=== PATIENT | male | born 1965 | race Caucasian/White ===

== ENCOUNTER 2022-09-08 21:38 | Emergency (ER) | payer OTHER, SELFPAY ==
[2022-09-08 21:43] VITALS: BP 179/94; PULSE 72; RESP 18; TEMP 37.1; O2SAT 98; BMI 35.2
--- NOTE | 2022-09-08 21:46 | ED_ITS ---
HPI - Allergic Reaction General Chief complaint: Animal Bite Stated complaint: STING - BEE Time Seen by Provider: 09/08/22 21:43 History of Present Illness HPI narrative: patient states he was stung several times on the back of his legs around 4PM. feels his legs are swollen. He feels his throat is feeling tight. No short of breath. voice is not hoarse. No fever or nausea complaint: Reports allergic reaction Onset (ago): hour(s) Related Data Home Medications Medication Instructions Recorded Confirmed cetirizine 10 mg capsule (Allergy 10 mg PO DAILY PRN allergy symptoms 09/08/22 09/08/22 Relief (cetirizine)) lisinopril 10 mg tablet 10 mg PO DAILY 09/08/22 09/08/22 naproxen sodium 220 mg capsule 220 mg PO DAILY 09/08/22 09/08/22 (Aleve) simvastatin 20 mg tablet 20 mg PO BEDTIME 09/08/22 09/08/22 Allergies Allergy/AdvReac Type Severity Reaction Status Date / Time No Known Drug Allergies Allergy Verified 09/08/22 21:43 Review of Systems ROS Status of ROS 10 or more systems reviewed and unremarkable except as noted in history and below [facility] Medical History (Updated 09/08/22 @ 23:42 by Evan Young MD) Exam Constitutional Common normals: no apparent distress, average body habitus, oriented x3, no limitations and healthy appearing [facility] Common normals: normocephalic, head/scalp atraumatic, hearing grossly normal bilaterally and external nose normal Face and sinus: normal facial exam Other: mild edema of his uvula. no stridor or hoarse voice Eye Common normals: PERRL, EOMs intact bilaterally and conjunctivae normal Respiratory Common normals: normal respiratory effort, no retractions, no use of accessory muscles and clear to auscultation bilaterally Cardio Common normals: regular rhythm, S1 normal heart sound and S2 normal heart sound GI Common normals: Normal to inspection, nondistended, normoactive bowel sounds present, soft to palpation and non-tender Extremity Common normals: normal to inspection and no joint enlargement Neuro Common normals: oriented x3, CN's II-XII intact bilaterally, moves all extremities and no focal motor deficits Psych Appearance: grossly normal MDM - Allergic Reaction MDM Narrative Medical decision making narrative: patient presents after allergic reaction to bee sting. Sensation of tightness in his throat. treated with combination of solumedrol, pepcid and benadryl. At the time of discharge his throat was no longer feeling tight and he was feeling better. Discharged with prednisone and benadryl to take later tonight and a prescription for prednisone tomorrow > He is to follow up with his family doctor for a recheck. Also provided a prescription for an epi pen Discharge Plan Discharge Chief Complaint: Animal Bite Clinical Impression: Allergic reaction to bee sting Prescriptions / Home Meds: No Action lisinopril 10 mg tablet 10 mg PO DAILY simvastatin 20 mg tablet 20 mg PO BEDTIME Allergy Relief (cetirizine) 10 mg capsule 10 mg PO DAILY PRN (Reason: allergy symptoms) naproxen sodium [Aleve] 220 mg capsule 220 mg PO DAILY Instructions: Insect Bite or Sting (ED) Additional Instructions: take benadryl and prednisone in the next 4-6 hours. follow up with your doctor next week Stand Alone Forms: Portal Instructions Referrals: Jarod Ayoub MD [Primary Care Provider] - 1 week
[2022-09-08 22:01] VITALS: RESP 18
[2022-09-08] MEDS: METHYLPREDNISOLONE SOD SUCC PF 125 MG/2 ML VIAL IVP (22:07)
[2022-09-08] MEDS: FAMOTIDINE/PF 20 MG/2 ML VIAL IV (22:08)
[2022-09-08] MEDS: DIPHENHYDRAMINE HCL 50 MG/ML (1ML) VIAL IV (22:08)
[2022-09-08 22:44] VITALS: BP 157/74; PULSE 67; RESP 16; O2SAT 99
[2022-09-08] MEDS: ACETAMINOPHEN 500 MG TABLET 1000 MG PO (22:48)
[2022-09-09] MEDS: DIPHENHYDRAMINE HCL 25 MG CAPSULE 50 MG PO (00:10)
[2022-09-09] MEDS: PREDNISONE 20 MG TABLET 40 MG PO (00:10)
[2022-09-09 00:17] VITALS: BP 141/75; PULSE 63; RESP 16; O2SAT 98
== END 2022-09-09 00:19 | disposition home or self-care (01) ==
PROVIDERS: Emergency Provider Internal Medicine; PCP Family Medicine
DX: T63.441A Toxic effect of venom of bees, accidental (unintentional), initial encounter (principal); Z79.899 Other long term (current) drug therapy
CPT/HCPCS: 96374; 96375; 99284; J2930

== ENCOUNTER 2023-05-15 10:23 | Outpatient (OUT) | payer OTHER, SELFPAY ==
[2023-05-15 10:35] LABS: Basophils Percent Auto 0.7 % (0.2-2.0); Eosinophils Absolute Auto 0.4 10^3/uL (0.0-0.7); Eosinophils Percent Auto 8.9 % (0.9-7.0); Hematocrit 44.3 % (42.0-54.0); Hemoglobin 14.8 g/dL (14.0-18.0); Immature Granulocytes Abs Auto 0.02 10^3/uL (0.00-0.03); Immature Granulocytes Pct Auto 0.5 % (0.0-0.5); Lymphocytes Absolute Auto 1.3 10^3/uL (1.2-3.8); Lymphocytes Percent Auto 32.4 % (20.5-60.0); Mean Corpuscular HGB Conc 33.4 g/dL (29.9-35.2); Mean Corpuscular Hemoglobin 29.6 pg (25.9-34.0); Mean Corpuscular Volume 88.6 fL (80.0-94.0); Mean Platelet Volume 8.4 fL (9.5-13.5); Monocytes Absolute Auto 0.6 10^3/uL (0.3-0.8); Monocytes Percent Auto 14.9 % (1.7-12.0); Neutrophils Absolute Auto 1.7 10^3/uL (1.4-6.5); Neutrophils Percent Auto 42.6 % (43.0-75.0); Platelet Count 169 10^3/uL (150-450); Red Cell Distribution Width 12.7 % (11.0-15.0)
[2023-05-15 10:44] LABS: Estimated Average Glucose 120 mg/dL; Glycohemoglobin A1C 5.8 % (4.5-6.2)
[2023-05-15 11:23] LABS: Alanine Aminotransferase 58 U/L (16-63); Albumin Globulin Ratio 1.2; Alkaline Phosphatase 86 U/L (46-116); Anion Gap 11.6; Aspartate Amino Transferase 30 U/L (15-37); BUN Creatinine Ratio 16.3; Bilirubin Total 0.4 mg/dL (0.2-1.0); Calcium 8.9 mg/dL (8.5-10.1); Carbon Dioxide 28.4 mmol/L (21.0-32.0); Chloride 102 mmol/L (98-107); Chol HDL Ratio 4.2; Cholesterol 173 mg/dL (<=200); Estimated GFR (African America >60 (>=60); Estimated GFR (Non-African Ame >60 (>=60); Free T3 2.93 pg/mL (2.18-3.98); Globulin 3.3 g/dL; Glucose 110 mg/dL (74-106); HDL Cholesterol 41 mg/dL (40-60); Sodium 138 mmol/L (136-145); Thyroid Stimulating Hormone 1.842 uIU/mL (0.358-3.740); Total Protein 7.3 g/dL (6.4-8.2); Triglycerides 163 mg/dL (<=150); VLDL CHOLESTEROL 32.6 mg/dL
[2023-05-15 11:25] LABS: Prostate Specific Antigen Scrn 0.94 ng/mL (<=4.00)
[2023-05-16 08:11] LABS: Insulin 22.9 uIU/mL (2.6-24.9)
== END 2023-05-15 10:24 | disposition home or self-care (01) ==
LOC: LAB 10:23
PROVIDERS: PCP Family Medicine; Visit Provider Family Medicine
DX: Z00.00 Encounter for general adult medical examination without abnormal findings (principal); R73.09 Other abnormal glucose; Z12.5 Encounter for screening for malignant neoplasm of prostate
CPT/HCPCS: 36415; 80053; 80061; 83036; 83525; 84436; 84443; 84481; 85025; G0103

== ENCOUNTER 2023-11-02 13:05 | Emergency (ER) | payer OTHER, SELFPAY ==
[2023-11-02] VITALS (11 sets, daily range): BP systolic 128–172; BP diastolic 71–95; PULSE 57–75; TEMP 36.8; O2SAT 95–98; BMI 35.2
--- NOTE | 2023-11-02 13:22 | ECG_ITS ---
[facility] Test Date: 2023-11-02 Pat Name: DIANDRA WOODWARD Department: Room: - Gender: Male Functional Manager: : 1965 Requested By: YEE MANLEY Order Number: [id number] Reading MD: MADISON DAVIS Measurements Intervals [place] Rate: 69 P: 52 OR: 200 QRS: 36 QRSD: 94 T: 30 QT: 412 QTc: 431 Interpretive Statements 1100 Sinus rhythm 9110 normal ECG No previous ECG available for comparison Electronically Signed On 11-03-2023 18:44:06 EDT by MADISON DAVIS
--- NOTE | 2023-11-02 13:24 | ED.ALLEREA1 ---
HPI - Allergic Reaction General Chief complaint: Allergic Reaction Stated complaint: BEE STING/ ALLERGIC REACTION Time Seen by Provider: 11/02/23 13:19 Source: patient Mode of arrival: walk-in Limitations: no limitations History of Present Illness HPI narrative: Patient is a 58-year-old male with a history of bee sting allergy who presents to the emergency department after being stung about 30 minutes ago in the back of the left leg. He used his EpiPen immediately and has not had any focal medical complaints other than feeling shaky since using the EpiPen. He denies any rash, itching, tongue swelling or throat swelling. His states they were concerned because when he was diagnosed with a bee sting allergy, he was stung and did not develop any throat swelling for several hours which prompted the physician to give him an EpiPen. No other medications taken prior to arrival. Related Data Home Medications ?Medication ?Instructions ?Recorded ?Confirmed cetirizine 10 mg capsule (Allergy 10 mg PO DAILY PRN allergy symptoms 09/08/22 09/08/22 Relief (cetirizine)) lisinopril 10 mg tablet 10 mg PO DAILY 09/08/22 09/08/22 naproxen sodium 220 mg capsule 220 mg PO DAILY 09/08/22 09/08/22 (Aleve) simvastatin 20 mg tablet 20 mg PO BEDTIME 09/08/22 09/08/22 Previous Rx's ?Medication ?Instructions ?Recorded epinephrine 0.3 mg/0.3 mL 0.3 mg (0.3 mL) IM ONCE PRN 11/02/23 injection, auto-injector (EpiPen) anaphylaxis #1 ea hydroxyzine HCl 25 mg tablet 25 mg PO Q6H PRN itching #20 tabs 11/02/23 prednisone 20 mg tablet 60 mg (3 x 20 mg) PO DAILY 3 days 11/02/23 #9 tabs Allergies Allergy/AdvReac Type Severity Reaction Status Date / Time bee venom protein (honey bee) Allergy Severe Hives Verified 11/02/23 13:11 Review of Systems ROS Constitutional Denies: fever or chills Eyes Denies: change in vision Ears, nose, mouth, and throat Denies: throat pain, throat swelling or nasal congestion Cardiovascular Denies: chest pain Respiratory Denies: shortness of breath Gastrointestinal Denies: nausea or vomiting Musculoskeletal Denies: back pain or neck pain Integumentary/Breast Denies: rash, itching or redness Neurological Denies: numbness in extremities or weakness in extremities Hematologic/Lymphatic Denies: easy bruising or easy bleeding [facility] Medical History (Updated 11/02/23 @ 14:34 by REJI Muller) High cholesterol ?E78.00 - Pure hypercholesterolemia, unspecified (ICD-10) High blood pressure ?I10 - Essential (primary) hypertension (ICD-10) Exam Narrative Exam Narrative: Gen.: Awake, alert, in no distress Head: Normocephalic, atraumatic ENT: Moist mucous membranes Respiratory: No respiratory distress, lungs clear bilaterally Cardio: Regular rate and rhythm Extremities: Moves extremities equally Psych: Normal mood and affect Neuro: No focal neuro deficit Skin: Warm, dry, intact Constitutional Vital Signs, click to edit/add: Last Vital Signs Temp 98.2 F 11/02/23 13:12 Pulse 64 11/02/23 13:12 Resp 20 11/02/23 13:12 BP 172/95 H 11/02/23 13:12 Pulse Ox 95 11/02/23 13:12 Course Vital Signs Vital signs: Vital Signs Temperature 98.2 F 11/02/23 13:12 Pulse Rate 64 11/02/23 13:12 Respiratory Rate 20 11/02/23 13:12 Blood Pressure 172/95 H 11/02/23 13:12 Pulse Oximetry 95 11/02/23 13:12 Temperature 98.2 F 11/02/23 13:12 Pulse Rate 64 11/02/23 13:12 Respiratory Rate 20 11/02/23 13:12 Blood Pressure 172/95 H 11/02/23 13:12 Pulse Oximetry 95 11/02/23 13:12 MDM - Allergic Reaction MDM Narrative Medical decision making narrative: Patient stated initially when he gave himself the epi injection, he noticed that his pulse felt fast which immediately resolved. He was observed in the emergency department for over 90 minutes, he had no tachycardia, normal EKG monitoring and no complaints of chest pain or shortness of breath. He did not develop any rash, itching, facial swelling. He rested comfortably throughout his stay in the ER and will be discharged home with a refill prescription for an EpiPen, short course of antihistamines and steroids. Follow-up with PCP and return to the ER if symptoms change or worsen. SUPERVISED APC VISIT, PHYSICIAN ATTESTATION: Based on the medical record the care appears appropriate. ? Medical Records Attestation: I reviewed the patient's medical records. ECG Data Attestation: I personally reviewed and interpreted this ECG as follows: (Sinus rhythm at a rate of 69, no acute ST elevation or ectopy. EKG reviewed by attending physician) Discharge Plan Discharge Chief Complaint: Allergic Reaction Clinical Impression: Bee sting Patient Disposition: Home, Self-Care Time of Disposition Decision: 14:33 Condition: Good Prescriptions / Home Meds: New prednisone 20 mg tablet 60 mg PO DAILY 3 Days Qty: 9 0RF hydroxyzine HCl 25 mg tablet 25 mg PO Q6H PRN (Reason: itching) Qty: 20 0RF epinephrine [EpiPen] 0.3 mg/0.3 mL auto-injector 0.3 mg IM ONCE PRN (Reason: anaphylaxis) Qty: 1 0RF Rx Instructions: for 2 doses No Action lisinopril 10 mg tablet 10 mg PO DAILY simvastatin 20 mg tablet 20 mg PO BEDTIME Allergy Relief (cetirizine) 10 mg capsule 10 mg PO DAILY PRN (Reason: allergy symptoms) naproxen sodium [Aleve] 220 mg capsule 220 mg PO DAILY Print Language: [place]er Instructions: Insect Bite or Sting (ED) Referrals: Jarod Ayoub MD [Primary Care Provider] - 1 week
[2023-11-02] MEDS: 0.9 % SODIUM CHLORIDE 1,000 ML 999 ML IV (13:38)
[2023-11-02] MEDS: METHYLPREDNISOLONE SOD SUCC PF 125 MG/2 ML VIAL IVP (13:40)
[2023-11-02] MEDS: FAMOTIDINE/PF 20 MG/2 ML VIAL IV (13:40)
== END 2023-11-02 14:59 | disposition home or self-care (01) ==
PROVIDERS: Emergency Provider Student in an Organized Health Care Education/Training Program; PCP Family Medicine
DX: T63.441A Toxic effect of venom of bees, accidental (unintentional), initial encounter (principal)
CPT/HCPCS: 93005; 96374; 96375; 99284; J2919

== ENCOUNTER 2024-05-28 11:41 | Outpatient (OUT) | payer OTHER, SELFPAY ==
--- OUTSIDE RECORDS SUMMARY | 2024-05-28 12:02 | XMS_ITS | CCD ---
Author Organization [facility] Inform ion Partnership [facility] Care Team Providers Care Otolaryngology Surgeon Name Role Phone DR YEE AYOUB Attending Unavailable DR YEE AYOUB Admitting Unavailable DR YEE AYOUB Primary Care Unavailable DR YEE AYOUB Consulting Unavailable DR YEE AYOUB Admitting Unavailable DR YEE AYOUB Primary Care Unavailable DR YEE AYOUB Consulting Unavailable DR YEE AYOUB Attending Unavailable Yee Ayoub Primary Care Physician Yusra Baldwin Referring Unavailable Yusra Baldwin Attending Unavailable Yusra Baldwin Admitting Unavailable Medications Current Medications Medication Drug Class(es) Dates Sig (Normalized) Sig (Original) Centrum Adults (1 source) Start: 10-07-2020 take 1 tablet by mouth once daily Centrum Adults 1 tab(s), Oral, Daily, Refill(s) 0 Start Date: 10/07/20 Status: Ordered cetirizine hydrochloride 10 mg oral tablet (1 source) Histamine-1 Receptor Antagonist Start: 10-07-2020 take 1 tablet by mouth once daily cetirizine 10 mg Tab 10 mg = 1 tab(s), Oral, Daily, Refills(s) 0 Start Date: 10/07/20 Status: Ordered simvastatin 20 mg oral tablet (1 source) HMG-CoA Reductase Inhibitor Start: 09-29-2020 take 1 mg by mouth once daily at bedtime simvastatin 20 mg Tab mg tab(s), Oral, Once a day (at bedtime), Refills(s) 0 Start Date: 09/29/20 Status: Ordered Problems Active Problems Problem Classification Problem Date Documented Date Episodic/Chronic Disorders of lipid metabolism (1 source) Hypercholesterolemia 09-29-2020 Chronic Other gastrointestinal disorders (1 source) Hyperplastic polyp of intestine 11-11-2020 Episodic Other nutritional; endocrine; and metabolic disorders (1 source) Body mass index 30+ - obesity 10-07-2020 Chronic Other screening for suspected conditions (not mental disorders or infectious disease) (1 source) Encounter for screening for malignant neoplasm of prostate; Translations: [ENC SCREEN MALIG NEOPLASM PROSTATE] Onset: 12-23-19 22 Episodic Residual codes; unclassified (1 source) Obstructive sleep apnea syndrome; Translations: [Obstructive sleep apnea (adult) (pediatric)] Onset: 04-08-19 23 Chronic Residual codes; unclassified (1 source) Sleep apnea 09-29-2020 Chronic Spondylosis; intervertebral disc disorders; other back problems (2 sources) Cervical disc disorder; Translations: [Disorder of lumbar disc] 09-29-2020 Chronic Unclassified (3 sources) CONTACT W/AND (SUSP) EXPOS COVID-19; Translations: [CONTACT W/AND (SUSP) EXPOS COVID-19] Onset: 03-11-19 Unclassified (1 source) Patient encounter status 10-07-2020 Past or Other Problems Problem Classification Problem Date Documented Da te Episodic/Chronic Conditions associated with dizziness or vertigo (1 source) Dizziness and giddiness; Translations: [DIZZINESS AND GIDDINESS] Onset: 03-11-2021 Episodic Unclassified (1 source) CONTACT W/AND (SUSP) EXPOS COVID-19; Translations: [CONTACT W/AND (SUSP) EXPOS COVID-19] Onset: 03-09-2021 Results Test Name Value Interpretation Reference Range Facil ity Coding Summary.on 04-13-2022 Coding Summary. [id number] Gh0bWw+PGhlYWQ+PE1FV UKuZ17wdXCcyK4NU7fHO G6RKWLHUOVTID1GTR8ne DP8NNxnB1LtllJa PoidxLNcZL81DRo1VIJ1 eChvVVylyL9eoCGgC7y2 ZsCcUP06dA12SAnuXOIm StK7IoTcoajfaVUo T3eiAiKgxVPwPot+PHRh YmxlIHdpZHRoPScxMDAl ZyXylSzuLK0kJv1xXPPg LWNvbGxhcHNlOiBj o4vlGTByUPxkHJ0lqHlq P7FpcPT7GMGdp5i3Dk22 dHI+UOEjQIX7uBvwMZcb e293IjJjp1zuIHQ4 gJAbNKfxDUR2T06nf2O8 EWExZDMaCCY1sLV7cT0l iRlgfrwfN0AakGOfCyE4 YZM7wGTaiD3usMpu lfawoY7tKlo+T47GUH6U VPSXFV3OUrr3R0RoLeit dHI+EY39JZRlOK88nLNl lGCqa4zczZo6KyDw DWGvQHT8lTsfVRidr8Ie IAGeG75bmZMle3W6LORx xZxzkXMxAyQceFR1lI8j RBamqiqvg1eqlium Iseer2ffsn05lK42D13h DXcsHTUfMCR5ZBUfYHKi sKtomf9saO9eXu6+IDxj x1bha8ckrIw4QiUs BQLytpVdlFwqWPA4c2Nz Kt85M8VhgYyui9ChPtw7 xe86cMGrq1F2oRI0SAwj HCUhoE5iJGqtCqI7 OEDlPvBobE62nEZcJWzm Ph8jgCkmeTarBK6hGHFn txhaHJYzfM4tHBPlyDFb kUgqSG4jGOYwwsdi k484DmGmOOF4HBRkaEYa Y5AtqS8qDwMgLVSuJOEo X2OigMNvLKekC479IVkc FsD7YWUpiqKiX4Qi QINmyEfoKqV8u4G9Eh0M l3BghrxwGWE2NKmoEILm JyR1ViEuOgP3H8BwVhg4 CSJwuDukIX7xM8Ni QVHqypqwatvyzVT9XYHt UPLnrI68lMQoFYxcTj8h u7E8t893LKFtXDXxhZ19 Fs9ocQylNRWmlQIE aT4gyrblm3fpgeahCtGp MOVhDCy0YMd1XQTfkQwn SfWgTOQ7IhH9CHL9cGXh kO8egWxdakwmgQ0b Oyc+X02tdZ8aMIC7RKI3 pwadELVpfkCcRF03XV54 G5OlDutvfMBjlXQ+PGRp luLdhCafGL7sVpXd x9jta5BtHLkmX7DsGWUs ZEkiQfn7ERTuJIH9mOV4 wE9sUJUaYGvtk0C9sHM2 O6SenxLwtx0po9bx LBMsFElkI16ljJLrv5B5 YPGmtHZ0IIKyuNvvDgMh nN82Wmd+HITibMewm3Rf Gogrc1bts7exiRt0 IjMwJSIgdmFsaWduPSJ0 z6WsOg72J44fKDelSQOx WQNcSVIgGBPtlLjroy2k yG7tCh3+PGNvbCB3 qJF1lW4iYJSpGyR6CWcl R172AvRyqKAnVgzpm7fq z6ycnYc6HrJtZWMybzJs nPeuGYG4a4VaPh55 T36jFRzcUJUkHSVrFAXm SXAgaRkzbz8ylX8gKh8+ DA7bm0tguq99qU62uJP+ OWGuISJ9mHlhMTde AUOdgV2sPRyrReO1CKHh IiUdsD18kYRdSVznFx4t aEdzpCvkIJ9sIMFkpoiy t369VuNba4rlNBYr nMOdRZctJTB7K21ju4S8 TDHrCNQjTFB7gWR7jG7h bGlnbjogbGVmdDsgdmVy jJkoZCdbXJgtR973 IHRvcDsnPlBhdGllbnQg RuLqUBr0N3YqIrl7WIIj oUpnIN4adHDrEGalRp3m uNlutXtzHZ3fTIXh wnuyd966KnBwo0yrLVMn rPSrHSdtKBJ1O01ii4H6 YFRnDZTsWWZ9iVQ3aA2j bGlnbjogbGVmdDsg tlQcuWckFAjhWOcgY647 IHRvcDsnPkJpcnRoIERh oME1LR45MI79mSFjw8V9 mUD2A1PhQCRpibak bdyvkHY6FDZsQVDvtL36 Nq6hqPayFt0rJHPdISY7 PTSvtIIaV7DiuF0dLuFc XIKaIMAbF7GcbBXp SQdtW588QIzjLhV9IREi ouAaF6RyFEErfRsmLdK0 m9B3Jf6MZ9F2RZ64GF01 pKUbp8V9cMI1O5Ka PMCutjovpoicoER7URAx ZHPhmH70Nd1esWymVl1k FCRlBIL3JJHltNIdR6Vk qT0aEhSeESLrVJZb V3AorNMjSJhoQ859SUhg EwU7COHtinQnU1JcMAOk gSfjEcU9v6N9Ga6APFv7 NA32CB14aVFkb8E9 aIZ9Q2LvEIQcarwllikr kZR4EZRcLBSypE47Fm7y xWpgGw0wRDIaQQZ0MNHr hPPeA6IbvT2dCpSh QFCaDKVnQ3AdrWQpQPfm B867BFfmBeR5UVJlmpAf L2JbKWBtoEebGlF1u1J5 Jl1CQWTcOF01KMH6 eSE9PU51PR97Q0QuKuuk dGFibGU+PHRhYmxlIHdp ZHRoPScxMDAlJyBzdHls DA3sEl2eGKBvJTJp sLxvgHReIdXtq4cqODIv ANvzMV2qqNarK8QktHN1 CRXcw2v9Mr86L06aN6Gu dXA+OVBxoZF5iIX2 mI1qRfHzYbO0MKbjH801 JyIuxYGaIvano6dcr6cw nEb7UaJ3UALkvpGbpWrg IEG1l8IoCf61Y26z IHdpZHRoPSIxNSUiIHZh hGwise6qyY7lIz3+PGNv bUL0oHG5nN8bZbMlJdR1 TTfwL753UlTkzRGh Rbxmg4xyd3spkJn8InLx PYRhxzSdlIryYSF2l2Wx Gt91U8ZtnGemv5FfWjn6 xv33sGWgz2Q1zTJ3 Z8TpANUhhytxnHYykCnu KQ9jCDQvcdvkESCffY6r AYVjE5a4ErNcXiJ7BMro C3RtelE0RQAqqWOx RRsaZPJ8M91qw5Z6PCJs QQOcOLQ3wAT8hH9xhRlq bjogbGVmdDsgdmVydGlj VSyjPJgjN844RYBx iVjfZBRhqW6kQMOqqNKb yLyxOW7uONNovrsyJwhN QHUIJRSEXgkqCQ2TRK7O DPZWOW63BP32cFVu h4E2mAE4S8BpCQLxmcxu ozgufFT1VTGjMSMgeI27 cOLyGJvdVv8yz0F4w609 PTXiXYLkcW53Ig6p xAxxALAhsCUWmK3oxkhs y3vuuykpSnIeLIYfBLt3 UGk0QRWtfQdgWaMkXPX2 NaG1CEP4gOQnyU8m yCjhzgbfpT6fDyd+MDYv FKHuDGo5YdqreUP+PHRk GQT4rSipKLouZTAynO8a YRVaE0q1NlKdHzJ4 DSrcQ6RfPPZmxkhkHi67 bZ7xLgLnZbX3YTlsC2Fi xpO0UYRfjQMrYOyaMCA5 G78jy9D8NHLbFKLj QPX7bTV6gP6spKdxqans bGVmdDsgdmVydGljYWwt SHbfR555PWEvrQczFfY5 CYmcKJOeFC66BI73 oFYko6U7bTC7W5JgNSFk fisnjrpnuIN5EKDeVSWv sY31vBTmHJpfRn1hh0C1 b654UKCsCRQmpB69 Fk3grDntKHBwnLVAoH2n spjel2zbqbquXbRlVDBj VLx6OQh2OOEkiGqkDsQf LXD3YkY4NHO2lSHs pP1gdDurscezuA8aHdr+ TWFsZTwvdGQ+PHRkIHN0 eVrnUSeeKTBqmU9uKQFg A2x9DzJaVxS5BFug B2HdFLXbrcqfNp68sJ9t RqXbJoK7WPiuW3DnczQ7 SJLmfRZyFKveKFK4Z09i s9X0YNPvPMUcZEW7 jPD7eJ4uaAjoizrtyBFh dDsgdmVydGljYWwtYWxp W386FIIldFvoXl92dGPa iCulcnN4F2PeVcjv dHI+HC93EZPpVG84dLKo pROyy8zrhFx3XxQyOTYr TJK3eYleCZkla1KuDBOf D15fjFZlt4Z0OKMz lKcufOJlSrKqxUL4rU9f FVuddyjyf0ayjzsoEzwn o7uxoo56sA96J91sIUkq ZHRoPSIzMCUiIHZh kGrbcp8tfK4hSz5+PGNv aKA0qOF1iT1oNfBpZxM4 ATsaC979UdQhhEVkZpma s1zer3jioUc8LgAu FHTwrvXplUarEIX9n6Na Pf43H66dXNrcTMBeWYZh COGdHPDhoEwglh0mxA8e Ii8+SI7xh5feez76 gJ13uKG+TSOlYIW9vHls UVitKBFcuZ4gOOqeUdJ6 IRBsQbCahA99jSFxULsq Qu1pcFqudMylKH3q VXYlcrvhs956ZvUwl1on LOFxfVUrYNeyVWG3Q76m t5E7PNQwWZRbVJC7aPK7 yA7xfKyvfbprcVKn dDsgdmVydGljYWwtYWxp Y374FDSvzCteOeCdgERc S8qbnuVKCG6bMwietEZ+ FZGkKOD3lQgpKGhe CZQjoA7uAGMuN6y3JdYm ZoT0LRdvC5IvidY5NDWg uCVtQPOssQHSkI2obuoa k7tvfvoxPsWrLMCn DQg9NIl6QCQolLefGdCw DFH6LeQ0OUZ7nOItcW4f lCligmtotA7jQex+RklO OjwvdGQ+PHRkIHN0 tLugOKmaEGVjrM6uDQPz F0w7ToDfVwJ6PFmzA3Jk hcW2MOPiaMUhNCNwcPPH cE6zdlkxt0jvyggs QcBgMGTnHEo5VDe0DECu cZfjIvMtGBM5EtN6RJZ2 iFWsbD3nbUstyixkkI4a Oyc+TVJOOjwvdGQ+ JVDxCHF8vOnsJZmqMOZz bJ2kQJFyN8n6AcVpQaJ9 MRlyU5HzvxI5WALyaFSq FZKzdTQVwW4hjtsy i0zxvfizPxGsJHFdRJw0 BKs1TBDggTouBrBkLIU9 CgU9RGH0uUFtdZ8wjOtc vuwgqA5cOlu+UGF5 SHG7TO88JX92D1TzEcxp dGFibGU+PHRhYmxlIHdp ZHRoPScxMDAlJyBzdHls DT1gHw1jPAMcINFn bGxh (more content not included)... Normal [facility] Patient History Officeon Patient History Office [id number]#1.00CD:127 Normal [facility] Prescriptions/Work Noteson 0 04-12-2022 Prescriptions/Work Notes [id number] 8#1.00CD:127 Normal [facility] Consent for Treatmenton 02- Consent for Treatment [id number] #1.00CD:127 Normal [facility] Sleep Office/Clinic Noteon 0 04-08-2022 Sleep Office/Clinic Note History of Present Illness Here to establish care for underlying obstructive sleep apnea. The patient was having problems with fatigue and daytime sleepiness and his reported snoring and witnessed apnea. He also underwent a colonoscopy and had several prolonged episodes of apnea and desaturation hence advise a sleep study. He underwent a sleep study which revealed underlying severe obstructive sleep apnea. We have arranged for an auto titrating CPAP machine with a pressure range of 5 to 20 cm with plans to see him back afterwards. He reports he has been using his machine via a nasal mask and has been tolerating relatively well. He reports that his sleep quality and daytime sleepiness has significantly improved and his no longer complains about his snoring. Review of Systems Constitutional: no fever, no chills, no sweats, no weakness Skin: no Jaundice, no rash, no lesions, no petechiae ENT: no ear pain, no sore throat, no congestion, no hoarseness Respiratory: Denies shortness of breath, cough or wheezing Cardiovascular: no chest pain, no palpitations, no edema Gastrointestinal: no nausea, no vomiting, no diarrhea, no GI bleeding Genitourinary: no dysuria, no hematuria, no discharge, no pain Musculoskeletal: no back pain, no trauma Neurologic: no headache, no dizziness, no numbness, no weakness Psychiatric: no irritability, no mood swings/depression. Heme/Lymph: no bleeding tendency, no bruising tendency, no petechiae, no swollen nodes Allergy/Immunologic: no seasonal allergies, no food allergies, no recurrent infections, no impaired immunity Additional ROS info: Except as noted in the above Review of Systems and in the History of Present Illness all other systems have been reviewed and are negative or noncontributory. Physical Exam General: Awake, alert, in no acute distress Skin: warm, dry Head: no trauma, normocephalic. Prolonged soft palate Neck: Trachea midline, no adenopathy, no tenderness Eye: normal conjunctiva, sclera clear ENMT: TM's clear, oral mucosa moist, no pharyngeal erythema or exudate Cardiovascular: regular rate and rhythm, normal peripheral perfusion Respiratory: Good breath sounds to both lung branch without wheezing or crackles. Gastrointestinal: soft, non distended, no tenderness, no guarding. Back: No tenderness, Normal ROM, Normal alignment. Extremities: no deformity, no trauma Neurological: oriented x 4, LOC appropriate for age, CN II-XII intact, motor strength equal & normal bilaterally, sensation equal & normal bilaterally, speech normal Psychiatric: cooperative, affect appropriate for age, normal judgement, normal psychiatric thoughts. Assessment/Plan 1. ROCHELLE (obstructive sleep apnea) (G47.33: Obstructive sleep apnea (adult) (pediatric)) The patient's sleep study was reviewed and results were discussed with the patient in details. Evidence of severe underlying obstructive sleep apnea with an apnea hypotony index of 59/hour with moderate oxygen desaturation noted. The etiology of obstructive sleep apnea and methods of treatment were discussed with the patient in details. Appears to be doing well on current pressures without significant side effects with good tolerance and compliance with CPAP with a significant improvement in the apnea hypopnea index to 0.8/hour with minimal leakage based on his most recent download which is reviewed from October 06, 2022 till April 06, 2022. The patient was advised to clean the machine regularly and change supplies as needed. Avoid driving while sleepy and avoid sedatives and hypnotics such as alcohol. We will continue with same pressure unless new issues develop and see the patient back after 1 year. The patient will call us back in the meantime if any issues. Follow-up With When Contact Information Denny FISH, Yusra Tipton, PUL, KEERTHI Within 1 year [address] [facility] [place] [address]- Additional Instructions: Problem List/Past Medical History Ongoing BMI 34.0-34.9,adult Cervical disc disease Hypercholesterolemia Hyperplastic polyp of sigmoid colon Lumbar disc disease Screening for malignant neoplasm of colon Sleep apnea Historical No qualifying data Procedure/Surgical History Screening colonoscopy (10/21/2020), Tonsillectomy and adenoidectomy. Medications Centrum Adults, 1 tab(s), Oral, Daily cetirizine 10 mg Tab, 10 mg= 1 tab(s), Oral, Daily simvastatin 20 mg Tab, Oral, Once a day (at bedtime) Allergies No Known Allergies Social History Alcohol - Denies Alcohol Use, 09/29/2020 Tobacco - Denies Tobacco Use, 09/29/2020 Never (less than 100 in lifetime) Tobacco Use:. Never Smokeless Tobacco Use:., 10/07/2020 Family History Metastatic cancer: Father. Primary malignant neoplasm of female breast: Mother. Primary malignant neoplasm of prostate: Brother. Normal [facility] Comment on above: Result Comment: Elec tronically Signed By: Denny FISH, Yusra Tipton\.br\Date and Time Signed: 04/08/22 11:17 EST INSULINon 12-18-2021 Insulin 20.5 uIU/mL Normal 2.6-24.9 [facility] Comment on above: Performed By: #### I NSULIN #### [facility] [address] [place] [address] Dr. Kristian Valderrama CBC AUTO DIFFon 12-17-2021 BASO # 0.0 103/ul Normal 0.0-0.1 [facility] Comment on above: Performed By: #### C BC #### [facility] [address] [place] [address] Dr. Kristian Valderrama Basophils/100 WBC (Bld) 0.6 % Normal 0.2-2.0 [facility] Comment on above: Performed By: #### C BC #### [facility] [address] [place] [address] Dr. Kristian Valderrama EO # 0.4 103/ul Normal 0.0-0.7 [facility] Comment on above: Performed By: #### C BC #### [facility] [address] [place] [address] Dr. Kristian Valderrama Eosinophils/100 WBC (Bld) 8.0 % Critically high 0.9-7.0 [facility] Comment on above: Performed By: #### C BC #### [facility] [address] [place] [address] Dr. Kristian Valderrama Erythrocyte distribution width (RBC) [Ratio] 12.8 % Normal 11.0-15.0 [facility] Comment on above: Performed By: #### C BC #### [facility] [address] [place] [address] Dr. Kristian Valderrama Hematocrit (Bld) [Volume fraction] 42.9 % Normal 42.0-54.0 [facility] Comment on above: Performed By: #### C BC #### [facility] [address] [place] [address] Dr. Kristian Valderrama Hemoglobin (Bld) [Mass/Vol] 14.5 g/dL Normal 14.0-18.0 [facility] Comment on above: Performed By: #### C BC #### [facility] [address] [place] [address] Dr. Kristian Valderrama IG # 0.03 10e3/ul Normal 0.00-0.03 [facility] Comment on above: Performed By: #### C BC #### [facility] [address] [place] [address] Dr. Kristian Valderrama IG % 0.6 % Critically high 0.0-0.5 [facility] Comment on above: Performed By: #### C BC #### [facility] [address] [place] [address] Dr. Kristian Valderrama LYMPH # 1.3 103/ul Normal 1.2-3.8 [facility] Comment on above: Performed By: #### C BC #### [facility] [address] [place] [address] Dr. Kristian Valderrama Lymphocytes/100 WBC (Bld) 28.1 % Normal 20.5-60.0 [facility] Comment on above: Performed By: #### C BC #### [facility] [address] [place] [address] Dr. Kristian Valderrama MANUAL DIFF REQ NO Normal [facility] Comment on above: Performed By: #### C BC #### [facility] [address] [place] [address] Dr. Kristian Valderrama MCH (RBC) [Entitic mass] 30.1 pg Normal 25.9-34.0 [facility] Comment on above: Performed By: #### C BC #### [facility] [address] [place] [address] Dr. Kristian Valderrama MCHC (RBC) [Mass/Vol] 33.8 g/dL Normal 29.9-35.2 [facility] Comment on above: Performed By: #### C BC #### [facility] [address] [place] [address] Dr. Kristian Valderrama MCV (RBC) [Entitic vol] 89.0 fL Normal 80.0-94.0 [facility] Comment on above: Performed By: #### C BC #### [facility] [address] [place] [address] Dr. Kristian Valderrama MONO # 0.5 103/ul Normal 0.3-0.8 [facility] Comment on above: Performed By: #### C BC #### [facility] [address] [place] [address] Dr. Kristian Valderrama Monocytes/100 WBC (Bld) 11.5 % Normal 1.7-12.0 [facility] Comment on above: Performed By: #### C BC #### [facility] [address] [place] [address] Dr. Kristian Valderrama NEUT # 2.4 103/ul Normal 1.4-6.5 [facility] Comment on above: Performed By: #### C BC #### [facility] [address] [place] [address] Dr. Kristian Valderrama Neutrophils/100 WBC (Bld) 51.2 % Normal 43.0-75.0 [facility] Comment on above: Performed By: #### C BC #### [facility] [address] [place] [address] Dr. Kristian Valderrama Platelet mean volume (Bld) [Entitic vol] 8.7 fL Critically low 9.5-13.5 [facility] Comment on above: Performed By: #### C BC #### [facility] [address] [place] [address] Dr. Kristian Valderrama PLT 184 103/ul Normal 150-450 [facility] Comment on above: Performed By: #### C BC #### [facility] [address] [place] [address] Dr. Kristian Valderrama RBC 4.82 106/ul Normal 4.70-6.10 [facility] Comment on above: Performed By: #### C BC #### [facility] [address] [address] [address] Kristian Valderrama WBC 4.6 103/ul Normal 4.0-11.0 [facility] Comment on above: Performed By: #### C BC #### [facility] [address] [place] [address] Dr. Kristian Valderrama GLYCOHEMOGLOBIN A1Con 2021 ADA RECOMMENDATION SEE BELOW Normal [facility] Comment on above: Result Comment: ADA RECOMMENDED LIMIT 4.0 - 6.0 ADA THERAPEUTIC TARGET < 7.0 ACTION SUGGESTED > 7.0 Performed By: #### A 1C #### [facility] [address] [place] [address] Dr. Kristian Valderrama Glucose [Mass/Vol] 123 mg/dL Normal [facility] Comment on above: Performed By: #### A 1C #### [facility] [address] [place] [address] Dr. Kristian Valderrama HbA1c (Bld) [Mass fraction] 5.9 % Normal 4.5-6.2 [facility] Comment on above: Performed By: #### A 1C #### [facility] [address] [place] [address] Dr. Kristian Valderrama LIPID PROFILEon 12-17-2021 CHOL-HDL RATIO NORM SEE BELOW Normal [facility] Comment on above: Result Comment: 3.3 - 4.4 LOW RISK 4.4 - 7.1 AVERAGE RISK 7.1 - 11.0 MODERATE RISK >11.0 HIGH RISK Performed By: #### C MP, LIPID #### [facility] [address] [place] [address] Dr. Kristian Valderrama Cholesterol [Mass/Vol] 193 mg/dL Normal <=200 [facility] Comment on above: Performed By: #### C MP, LIPID #### [facility] [address] [place] [address] Dr. Kristian Valderrama Cholesterol in HDL [Mass/Vol] 50 mg/dL Normal 40-60 [facility] Comment on above: Performed By: #### C MP, LIPID #### [facility] [address] [address] [address] Kristian Valderrama Cholesterol in LDL [Mass/Vol] 118.8 mg/dL Normal [facility] Comment on above: Performed By: #### C MP, LIPID #### [facility] [address] [address] [address] Kristian Valderrama Cholesterol.total/Cho lesterol in HDL [Mass ratio] 3.9 {ratio} Normal [facility] Comment on above: Performed By: #### C MP, LIPID #### [facility] [address] [address] [address] Kristian Valderrama HDL NORMAL > or = 60 mg/dl - LOW CARDIOVASCULAR RISK <40 mg/dl - HIGH CARDIOVASCULAR RISK Normal [facility] Comment on above: Performed By: #### C MP, LIPID #### [facility] [address] [place] [address] Dr. Kristian Valderrama LDL CALC NORMAL SEE BELOW Normal [facility] Comment on above: Result Comment: <100 mg/dl OPTIMAL 100 - 129 mg/dl NEAR OR ABOVE OPTIMAL 130 - 159 mg/dl BORDERLINE HIGH 160 - 189 mg/dl HIGH >190 mg/dl VERY HIGH Performed By: #### C MP, LIPID #### [facility] [address] [address] [address] Kristian Valderrama Triglyceride [Mass/Vol] 121 mg/dL Normal <=150 [facility] Comment on above: Performed By: #### C MP, LIPID #### [facility] [address] [address] [address] Kristian Valderrama VLDL CALC 24.2 mg/dL Normal [facility] Comment on above: Performed By: #### C MP, LIPID #### [facility] [address] [address] [address] Kristian Valderrama PROF 14(COMP METB)on 022 Albumin [Mass/Vol] 4.0 g/dL Normal 3.4-5.0 [facility] Comment on above: Performed By: #### C MP, LIPID #### [facility] [address] [address] [address] Kristian Valderrama Albumin/Globulin [Mass ratio] 1.2 {ratio} Normal [facility] Comment on above: Performed By: #### C MP, LIPID #### [facility] [address] [place] [address] Dr. Kristian Valderrama ALP [Catalytic activity/Vol] 78 U/L Normal 46-116 [facility] Comment on above: Performed By: #### C MP, LIPID #### [facility] [address] [place] [address] Dr. Kristian Valderrama ALT [Catalytic activity/Vol] 43 U/L Normal 16-63 [facility] Comment on above: Performed By: #### C MP, LIPID #### [facility] [address] [place] [address] Dr. Kristian Valderrama Anion gap [Moles/Vol] 11.5 mmol/L Normal [facility] Comment on above: Performed By: #### C MP, LIPID #### [facility] [address] [place] [address] Dr. Kristian Valderrama AST [Catalytic activity/Vol] 34 U/L Normal 15-37 [facility] Comment on above: Performed By: #### C MP, LIPID #### [facility] [address] [place] [address] Dr. Kristian Valderrama Bilirubin [Mass/Vol] 0.4 mg/dL Normal 0.2-1.0 [facility] Comment on above: Performed By: #### C MP, LIPID #### [facility] [address] [place] [address] Dr. Kristian Valderrama Calcium [Mass/Vol] 8.7 mg/dL Normal 8.5-10.1 [facility] [facility] Comment on above: Performed By: #### C MP, LIPID #### [facility] [address] [place] [address] Dr. Kristian Valderrama Chloride [Moles/Vol] 104 mmol/L Normal 98-107 [facility] Comment on above: Performed By: #### C MP, LIPID #### [facility] [address] [place] [address] Dr. Kristian Valderrama CO2 [Moles/Vol] 28.6 mmol/L Normal 21.0-32.0 [facility] Comment on above: Performed By: #### C MP, LIPID #### [facility] [address] [place] [address] Dr. Kristian Valderrama Creatinine [Mass/Vol] 0.80 mg/dL Normal 0.70-1.30 [facility] Comment on above: Performed By: #### C MP, LIPID #### [facility] [address] [address] [address] Kristian Valderrama EGFR-AF SURINAMESE >60 Normal >=60 [facility] Comment on above: Performed By: #### C MP, LIPID #### [facility] [address] [place] [address] Dr. Kristian Valderrama EGFR-NON AF SURINAMESE >60 Normal >=60 [facility] Comment on above: Performed By: #### C MP, LIPID #### [facility] [address] [place] [address] Dr. Kristian Valderrama Globulin (S) [Mass/Vol] 3.4 g/dL Normal [facility] Comment on above: Performed By: #### C MP, LIPID #### [facility] [address] [place] [address] Dr. Kristian Valderrama Glucose [Mass/Vol] 114 mg/dL Critically high 74-106 [facility] Comment on above: Performed By: #### C MP, LIPID #### [facility] [address] [place] [address] Dr. Kristian Valderrama Potassium [Moles/Vol] 4.1 mmol/L Normal 3.5-5.1 [facility] Comment on above: Performed By: #### C MP, LIPID #### [facility] [address] [place] [address] Dr. Kristian Valderrama Protein [Mass/Vol] 7.4 g/dL Normal 6.4-8.2 [facility] Comment on above: Performed By: #### C MP, LIPID #### [facility] [address] [place] [address] Dr. Kristian Valderrama Sodium [Moles/Vol] 140 mmol/L Normal 136-145 [facility] Comment on above: Performed By: #### C MP, LIPID #### [facility] [address] [address] [address] Kristian Valderrama Urea nitrogen [Mass/Vol] 15.0 mg/dL Normal 7.0-18.0 [facility] Comment on above: Performed By: #### C MP, LIPID #### [facility] [address] [address] [address] Kristian Valderrama Urea nitrogen/Creatinine [Mass ratio] 18.8 mg/mg Normal [facility] Comment on above: Performed By: #### C MP, LIPID #### [facility] [address] [place] [address] Dr. Kristian Valderrama Covid-19 PCR (CVDTB)on 02-27 SARS-CoV-2 (COVID-19) RNA TIM+probe Ql (Unsp spec) Not detected Normal NOT DETECTED [facility] Comment on above: Result Comment: This test is not yet approved or cleared by the [place] FDA. When there are no FDA-approved or cleared tests available, and other criteria are met, FDA can make tests available under an emergency access mechanism called an Emergency Use Authorization (EUA). The EUA for this test is supported by the [employer] of Health and Human Service's (HHS's) declaration that circumstances exist to justify the emergency use of in vitro diagnostics for the detection and/or diagnosis of the virus that causes COVID-19. This EUA will remain in effect (meaning this test can be used) for the duration of the COVID-19 declaration justifying emergency of IVDs, unless it is terminated or revoked by FDA (after which the test may no longer be used). When diagnostic testing is negative, the possibility of a false negative should be considered in the context of a patient's recent exposures and the presence of clinical signs and symptoms consistent with SARS-CoV-2. Performed By: #### C VDTBH #### [facility] [address] [place] [address] Dr. Kristian Valderrama Encounters Encounter Date Encounter Type Care Provider Facility Start: 04-08-2022 End: 04-09-2022 ambulatory Yusra Baldwin Facility:[facility] Start: 04-08-2022 End: 04-08-2022 Patient encounter procedure Yusra Baldwin [facility] Start: 12-22-2021 Encounter for genera l adult medical examination without abnormal findings DR YEE AYOUB [facility] Start: 12-17-2021 End: 12-18-[address] YEE AYOUB Facility:[facility] Start: 12-17-2021 End: 12-18-2021 Encounter for general adult medical examination without abnormal findings DR YEE AYOUB Facility:[facility] Start: 03-09-2021 End: 03-09-[address] YEE AYOUB Facility:[facility] Procedures Date Procedure Procedure Detail Performing Clinician Start: 12-17-[address] MARIE AYOUB Comment on above: Performed By: #### P [facility] #### [facility] [address] [place] [address] Dr. Kristian Valderrama Start: 10-21-2020 Screening colonoscopy B sabine Baldwin Comment on above: with polypectomy Tonsillectomy and adenoidectomy Yusra Baldwin Payers Date Payer Category Payer Private Health Insurance [id number] 1965 Unknown [id number] 1965 Unknown [id number] 1965 Unknown [id number] 1959 Unknown [id number] Social History Date Type Detail Facility Start: 10-07-2020 Tobacco smoking status Never s moked tobacco (finding) [facility] Tobacco smoking status Never [facility] Sex Assigned At Male [facility] Hospital Discharge instructions 04-01-2022 Note Date & Type Note Facility 04-01-2022 Hospital Discharg e instructions Follow Up Care 04/01/2022 11:42:28 With:Denny FISH, Yusra Tipton, GEOVANNA, KEERTHI Address: [address] [place] [address] [place] [address]- When:1 year [facility] Evaluation + Plan note Note Date & Type Note Facility Evaluation + Plan note No data available for this section [facility] Progress note Note Date & Type Note Facility Progress note No data available for this section [facility] Summary Purpose Family History No Family History Records FoundNo Family History Records Found Advance Directives No Advanced Directives Records FoundNo Advanced Directives Records Found Additional Source Comments (unrecognized sect ion and content) No Status Records FoundNo Status Records Found INFORMATION SOURCE (unrecogn ized section and content) DATE CREATED AUTHOR 12/23/2021 [facility] DATE CREATED AUTHOR AUTHOR'S ORGANIZ ATION 04/13/2022 [facility] Patient Care team informatio n (unrecognized section and content) Personnel Name: Yee Ayoub MD Address: Address: [address] [place] [address] FOR RECORDS PERTAINING TO PATIENTS WHO ARE OR HAVE BEEN ENROLLED IN A CHEMICAL DEPENDENCY/SUBSTANCEABUSE PROGRAM, SOME INFORMATION MAY BE OMITTED. This clinical summary was aggregated from multiple sources. Caution should be exercised in using it in the provision of clinical care. This summary normalizes information from multiple sources, and as a consequence, information in this document may materially change the coding, format and clinical context of patient data. In addition, data may be omitted in some cases. CLINICAL DECISIONS SHOULD BE BASED ON THE PRIMARY CLINICAL RECORDS. [facility]. provides no warranty or guarantee of the accuracy or completeness of information in this document.
[2024-05-28 12:15] LABS: Estimated Average Glucose 117 mg/dL; Glycohemoglobin A1C 5.7 % (4.5-6.2)
[2024-05-28 12:21] LABS: Basophils Absolute Auto 0.1 10^3/uL (0.0-0.1); Basophils Percent Auto 1.1 % (0.2-2.0); Eosinophils Absolute Auto 0.4 10^3/uL (0.0-0.7); Eosinophils Percent Auto 8.2 % (0.9-7.0); Hematocrit 42.8 % (42.0-54.0); Immature Granulocytes Abs Auto 0.01 10^3/uL (0.00-0.03); Immature Granulocytes Pct Auto 0.2 % (0.0-0.5); Lymphocytes Absolute Auto 1.4 10^3/uL (1.2-3.8); Lymphocytes Percent Auto 31.1 % (20.5-60.0); Mean Corpuscular Hemoglobin 30.5 pg (25.9-34.0); Mean Platelet Volume 8.8 fL (9.5-13.5); Monocytes Absolute Auto 0.7 10^3/uL (0.3-0.8); Neutrophils Absolute Auto 2.1 10^3/uL (1.4-6.5); Neutrophils Percent Auto 45.4 % (43.0-75.0); Platelet Count 178 10^3/uL (150-450); Red Blood Count 4.92 10^6/uL (4.70-6.10); Red Cell Distribution Width 12.9 % (11.0-15.0); White Blood Count 4.6 10^3/uL (4.0-11.0)
[2024-05-28 12:41] LABS: Alanine Aminotransferase 58 U/L (16-63); Albumin Globulin Ratio 1.2; Albumin Level 3.9 g/dL (3.4-5.0); Alkaline Phosphatase 82 U/L (46-116); Anion Gap 13.9; Aspartate Amino Transferase 29 U/L (15-37); BUN Creatinine Ratio 13.2; Bilirubin Total 0.5 mg/dL (0.2-1.0); Carbon Dioxide 27.3 mmol/L (21.0-32.0); Chloride 104 mmol/L (98-107); Chol HDL Ratio 3.6; Cholesterol 166 mg/dL (<=200); Estimated GFR (African America >60 (>=60 mL/min/1.73m^2); Estimated GFR (Non-African Ame >60 (>=60 mL/min/1.73m^2); Free T3 3.02 pg/mL (2.18-3.98); Globulin 3.2 g/dL; Glucose 105 mg/dL (74-106); HDL Cholesterol 46 mg/dL (40-60); LDL Cholesterol Calculated 91.8 mg/dL; Potassium 4.2 mmol/L (3.5-5.1); Sodium 141 mmol/L (136-145); Thyroid Stimulating Hormone 1.847 uIU/mL (0.358-3.740); Total Protein 7.1 g/dL (6.4-8.2); Triglycerides 141 mg/dL (<=150); VLDL CHOLESTEROL 28.2 mg/dL
[2024-05-28 13:19] LABS: Prostate Specific Antigen Scrn 0.89 ng/mL (<=4.00)
[2024-05-29 03:07] LABS: Insulin 16.7 uIU/mL (2.6-24.9)
== END 2024-05-28 11:42 | disposition home or self-care (01) ==
LOC: LAB 11:42
PROVIDERS: PCP Family Medicine; Visit Provider Family Medicine
DX: Z00.00 Encounter for general adult medical examination without abnormal findings (principal)
CPT/HCPCS: 36415; 80053; 80061; 83036; 83525; 84436; 84443; 84481; 85025; G0103